=== PATIENT | female | born 1970 | race Caucasian/White ===

== ENCOUNTER 2017-01-05 12:10 | Inpatient (IN) | payer OTHER ==
[~2017-01-05] VITALS: Ht 162.6 cm; Wt 65.3 kg
[2017-01-05] MEDS ORDERED: LANS30CA56 PO (13:09)
[2017-01-05] MEDS ORDERED: TOPI50TA21 PO (13:09)
[2017-01-05] MEDS ORDERED: ASPI-612 PO (13:09)
[2017-01-05] MEDS ORDERED: ALPR0.5T8 PO (13:09)
[2017-01-05] MEDS ORDERED: DILT120C51 PO (13:09)
[2017-01-05] MEDS ORDERED: ZOLP10TA6 PO (13:09)
[2017-01-05] MEDS ORDERED: CYCL5TAB PO (13:09)
[2017-01-05] MEDS ORDERED: MAG HYDROX/AL HYDROX/SIMETH 30 ML LIQUID UDC PO PRN (13:45)
[2017-01-05] MEDS ORDERED: MAGNESIUM HYDROXIDE 30 ML LIQUID UDC PO PRN (13:45)
[2017-01-05] MEDS ORDERED: LORAZEPAM 2 MG/1 ML VIAL IM PRN (13:45)
[2017-01-05] MEDS ORDERED: ONDANSETRON ODT 4 MG TAB.RAPDIS SL PRN (13:45)
[2017-01-05] MEDS ORDERED: LORAZEPAM 1 MG TABLET PO PRN ×2 (13:45)
[2017-01-05] MEDS ORDERED: DICYCLOMINE HCL 20 MG TABLET PO PRN (13:45)
[2017-01-05] MEDS ORDERED: ACETAMINOPHEN 325 MG TABLET PO PRN (13:45)
[2017-01-05] MEDS ORDERED: CLONIDINE HCL 0.1 MG TABLET PO PRN (13:45)
[2017-01-05] MEDS ORDERED: LOPERAMIDE HCL 2 MG CAPSULE PO PRN ×2 (13:45)
[2017-01-05] MEDS ORDERED: MIRALAX 17 GM POWD.PACK PO PRN (13:45)
[2017-01-05] MEDS ORDERED: ONDANSETRON 4 MG/2 ML VIAL IM PRN (13:45)
--- NOTE | 2017-01-05 15:06 | NUR ---
Admission Note VS: BP: 125/89 HR:81, SpO2: 98% room air, RR: 18, Temp: 98.6 Pain: 2/10 Headache Height: 5'4" Weight: 144 LB Allergies: SHAD Pt is a 46 y/o female admitted to [facility] on 01/05/17 at 1320. Pt is under the care of Dr. Wheat for alcohol dependence. Pt denies suicidal and homicidal ideations at this time. Pt denies being hospitalized in the past 30 days. Pt denies Chest Pain and SOB. Pt brought Ambien 10mg, Alprazolam 0.5mg, Cyclobenzaprine HCL 10mg, Aspirin 325mg, Cartia 120, Topiramate, lansoprazole. Upon assessment pt's skin is intact. CIWA 6 upon admission. NKA, A/Ox4 and able to answer questions necessary for the admission process. Pt is Full Code. VS WNL, Regular Diet. Pt denies having any seizures in the past . Pt reports her PCP is Dr. Donaldson. Breathing is even and unlabored, SpO2 is 98% on RA. Pt ambulates with a steady gait, pt reports feeling very tired and hungry. Pt reports regular bowel movement, LBM on 01/04/17. Pt denies being a smoker. Hx of a Gastric bypass, nasal surgery and a . Dr. Wheat has been notified, pt has been placed under observation at this time until UDS has been completed. Pt expected to start a 5 day Ativan taper starting at 1500 on 01/05/17. All needs have been met. Pt has been oriented to the room and the unit. All safety measures in place per hospital policy. Bed in lowest position, side rails up x2 and padded, call-light within reach. Will continue to monitor. Substance Abuse: Alcohol: 1.5 pints daily for 2 months. Last use: 1.5 pint on 01/04/17 in the evening. Prescription Medications as prescribed: Xanax: 1mg nightly for 7 years Ambien 10mg nightly for 4 years.
[2017-01-05 15:10] LABS: *URINE HCG, QUAL NEGATIVE (NEGATIVE)
[2017-01-05 15:19] LABS: BASOPHILS # (AUTO) 0.1 K/uL (0.0-8.0); BASOPHILS % (AUTO) 1.2 % (0.0-2.0); HEMATOCRIT 36.3 % (31.2-41.9); HEMOGLOBIN 11.8 g/dL (10.9-14.3); LYMPHOCYTES # (AUTO) 1.3 K/uL (20.0-40.0); LYMPHOCYTES % (AUTO) 26.5 % (20.5-51.5); MEAN CORPUSCULAR HEMOGLOBIN 27.1 uug (24.7-32.8); MEAN CORPUSCULAR HGB CONC 32 g/dL (32.3-35.6); MEAN CORPUSCULAR VOLUME 83.6 fL (75.5-95.3); MONOCYTES # (AUTO) 0.3 K/uL (2.0-10.0); MONOCYTES % (AUTO) 6.9 % (0.0-11.0); NEUTROPHILS # (AUTO) 3.1 K/uL (1.8-8.9); NEUTROPHILS % (AUTO) 64.4 % (38.5-71.5); PLATELET COUNT (AUTO) 298 K/uL (179-408); RED BLOOD CELL COUNT(AUTO) 4.35 MIL/uL (3.63-4.92); RED CELL DISTRIBUTION WIDTH 17.3 % (12.3-17.7); WHITE BLOOD COUNT (AUTO) 4.8 K/uL (3.8-11.8)
[2017-01-05] MEDS: LORAZEPAM 1 MG TABLET PO SCH ×2 (15:37→21:30)
[2017-01-05 15:38] LABS: ALANINE AMINOTRANSFERASE 58 U/L (14-59); ALBUMIN 3.6 g/dL (3.4-5.0); ALKALINE PHOSPHATASE 103 U/L (50-136); AMYLASE 70 U/L (25-115); ASPARTATE AMINOTRANSFERASE 99 U/L (15-37); BILIRUBIN,TOTAL 1.7 mg/dL (0.2-1.0); CALCIUM 8.8 mg/dL (8.5-10.1); CARBON DIOXIDE 28 mmol/L (21-32); CHLORIDE 98 mmol/L (98-107); CREATININE 1.1 mg/dL (0.6-1.3); GFR 54 mL/min (>60); GLUCOSE 102 mg/dL (74-106); LIPASE 335 U/L (73-393); MAGNESIUM 1.7 mg/dL (1.8-2.4); POTASSIUM 3.1 mmol/L (3.5-5.1); SODIUM SERUM 136 mmol/L (136-145); TOTAL PROTEIN, SERUM 7.4 g/dL (6.4-8.2); UREA NITROGEN, BLOOD 11 mg/dL (7-18)
[2017-01-05] MEDS ORDERED: THIAMINE HCL 200 MG/2 ML VIAL IM ONE (16:00)
[2017-01-05 16:05] LABS: ETHANOL < 3 MG/DL (0-0)
[2017-01-05 16:10] LABS: THYROID STIMULATING HORMONE 1.836 mIU/mL (0.358-3.740)
[2017-01-05 16:38] LABS: HIV-1 p24 ANTIGEN NON REACTIVE (NONREACTIVE); HIV-1/2 ANTIBODY NON REACTIVE (NONREACTIVE)
[2017-01-05 16:47] LABS: *AMPHETAMINE, URINE NEGATIVE (NEGATIVE); *BARBITURATE, URINE NEGATIVE (NEGATIVE); *CANNABINOID, URINE NEGATIVE (NEGATIVE); *COCCAINE, URINE NEGATIVE (NEGATIVE); *OPIATE, URINE NEGATIVE (NEGATIVE); *PHENCYCLIDINE SCREEN,URINE NEGATIVE (NEGATIVE)
[2017-01-05] MEDS ORDERED: MAGNESIUM OXIDE 400 MG TABLET PO ONE (17:00)
[2017-01-05] MEDS ORDERED: POTASSIUM CHLORIDE 20 MEQ TAB.PRT.SR PO ONE (17:00)
--- NOTE | 2017-01-05 19:27 | NUR ---
end of shift Endorsed pt to nightshift nurse. 4. Pt is a 46 y/o female admitted to [facility] on 01/05/17 at 1320. Pt is under the care of Dr. Wheat for alcohol dependence. Pt denies suicidal and homicidal ideations at this time. Pt denies being hospitalized in the past 30 days. Pt has been placed on a 5 day Ativan taper, Pt is tolerating taper and mildly withdrawing at this time AEB CIWA Pt denies Chest Pain and SOB. intake: 1500ml, Void x2, BM x0. Pt brought Ambien 10mg, Alprazolam 0.5mg, Cyclobenzaprine HCL 10mg, Aspirin 325mg, Cartia 120, Topiramate, lansoprazole. Upon assessment pt's skin is intact. CIWA 6 upon admission. NKA, A/Ox4 and able to answer questions necessary for the admission process. Pt is Full Code. VS WNL, Regular Diet. Pt denies having any seizures in the past . Pt reports her PCP is Dr. Donaldson. Breathing is even and unlabored, SpO2 is 98% on RA. Pt ambulates with a steady gait, pt reports feeling very tired and hungry. Pt reports regular bowel movement, LBM on 01/04/17. Pt denies being a smoker. Hx of a Gastric bypass, nasal surgery and a . Dr. Wheat has been notified, pt has been placed under observation at this time until UDS has been completed. Pt expected to start a 5 day Ativan taper starting at 1500 on 01/05/17. All needs have been met. Pt has been oriented to the room and the unit. All safety measures in place per hospital policy. Bed in lowest position, side rails up x2 and padded, call-light within reach. Will continue to monitor.
--- NOTE | 2017-01-05 19:28 | NUR ---
Start of shift note Received report from day shift nurse. Pt is a 46 yo female, A+Ox4, presenting to [facility] for ETOH dependence. Pt has NKA, Full Code status, and on Regular diet. Pt is on fall and Seizure precautions. Pt has HX of depression and Broken heart syndrome. Pt is on 5 day Ativan taper, tolerated well. No s/s of distress noted at this time. Respirations even and unlabored. Will continue to monitor.
[2017-01-05 20:24] VITALS: BP 108/73
[2017-01-05] MEDS: DILTIAZEM HCL SR 60 MG CAP.SR.12H PO SCH (21:29)
[2017-01-05] MEDS: TOPIRAMATE 25 MG TABLET PO SCH (21:30)
[2017-01-06 00:40] VITALS: BP 107/76
[2017-01-06 04:15] VITALS: BP 111/81
--- NOTE | 2017-01-06 04:17 | NUR ---
PRN Tylenol Pt c/o general body pain 02/27 and requested for PRN Tylenol. Medication given and tolerated well. Will reassess within 1 HR. Will continue to monitor.
--- NOTE | 2017-01-06 05:15 | NUR ---
PRN Tylenol Reassessment Medication effective. Pt pain level reduced to 3/10. No s/s of ASE/distress noted at this time. Respirations even and unlabored. Will continue to monitor.
[2017-01-06] MEDS: PANTOPRAZOLE SODIUM 40 MG TABLET.DR PO SCH (06:40)
--- NOTE | 2017-01-06 07:07 | NUR ---
End of shift note Pt is a 46 yo female, A+Ox4, presenting to [facility] for ETOH dependence. Pt has NKA, Full Code status, and on Regular diet. Pt is on fall and Seizure precautions. Pt has HX of depression and Broken heart syndrome. Pt is on 5 day Ativan taper, tolerated well. Pt was given PRN Tylenol @0417. Pt slept for a total of 7 HRS. Last CIWA: 5 @0400. No s/s of distress noted at this time. Respirations even and unlabored. Will endorse to day shift nurse.
[2017-01-06 08:00] VITALS: BP 104/73
[2017-01-06 08:04] LABS: BASOPHILS % (AUTO) 1.6 % (0.0-2.0); EOSINOPHILS % (AUTO) 1.6 % (0.0-7.0); HEMATOCRIT 35.4 % (31.2-41.9); HEMOGLOBIN 11.5 g/dL (10.9-14.3); LYMPHOCYTES # (AUTO) 0.9 K/uL (20.0-40.0); LYMPHOCYTES % (AUTO) 28.2 % (20.5-51.5); MEAN CORPUSCULAR HEMOGLOBIN 27.6 uug (24.7-32.8); MEAN CORPUSCULAR HGB CONC 32 g/dL (32.3-35.6); MONOCYTES # (AUTO) 0.3 K/uL (2.0-10.0); NEUTROPHILS # (AUTO) 1.8 K/uL (1.8-8.9); NEUTROPHILS % (AUTO) 57.6 % (38.5-71.5); RED BLOOD CELL COUNT(AUTO) 4.16 MIL/uL (3.63-4.92); RED CELL DISTRIBUTION WIDTH 17.3 % (12.3-17.7)
--- NOTE | 2017-01-06 08:04 | NUR ---
Start of shift note; Patient is AOX4. Patient is a 46 y/o female admitted on 01/05/17 for ETOH dependence. Patient reported history of depression. Patient was placed on 5 day Ativan taper. Patient's last CIWA is 5 at 0400. Patient is on regular diet, full code, NKA. Educated patient regarding treatment plan and medication regime, verbalized understanding. patient is on fall and seizure precaution. All safety measures secured. Met all needs. Addendum: 01/06/17 at 0812 by TAMMY JONES LVN Patient's UDS came back positive for Benzo, patient also reported taking Xanax as her home medication.
[2017-01-06 08:13] LABS: PLATELET COUNT (AUTO) 254 K/uL (179-408)
[2017-01-06 08:14] LABS: ALBUMIN 3.2 g/dL (3.4-5.0); BILIRUBIN,DIRECT 0.2 mg/dL (0.0-0.2); BILIRUBIN,TOTAL 1.2 mg/dL (0.2-1.0); CALCIUM 8.7 mg/dL (8.5-10.1); CREATININE 0.9 mg/dL (0.6-1.3); MAGNESIUM 1.9 mg/dL (1.8-2.4); PHOSPHOROUS 2.8 mg/dL (2.5-4.9); POTASSIUM 3.7 mmol/L (3.5-5.1); TOTAL PROTEIN, SERUM 6.6 g/dL (6.4-8.2)
[2017-01-06 08:17] LABS: HCV AB <0.1 s/co ratio (0.0-0.9); HEPATITIS B CORE AB, IgM Negative (Negative); HEPATITIS B SURFACE AG Negative (Negative)
[2017-01-06] MEDS: THIAMINE HCL 100 MG TABLET PO SCH (08:57)
[2017-01-06] MEDS: FOLIC ACID 1 MG TABLET PO SCH (08:58)
[2017-01-06] MEDS: ASPIRIN 325 MG TABLET PO SCH (08:58)
[2017-01-06] MEDS: MULTIVITAMINS,THERAPEUTIC TABLET PO SCH (08:58)
[2017-01-06] MEDS: TOPIRAMATE 25 MG TABLET PO SCH ×2 (08:58→20:11)
[2017-01-06] MEDS: LORAZEPAM 1 MG TABLET PO SCH ×3 (08:58→20:11)
[2017-01-06] MEDS: DILTIAZEM HCL SR 60 MG CAP.SR.12H PO SCH ×2 (08:59→20:12)
[2017-01-06] MEDS ORDERED: TUBERCULIN,PURIF.PROT.DERIV. 5 TU/0.1 ML TEST ID ONE (09:00)
[2017-01-06 12:00] VITALS: BP 104/79
[2017-01-06 16:00] VITALS: BP 112/83
[2017-01-06] MEDS: HYDROXYZINE PAMOATE 25 MG CAPSULE PO PRN (16:39)
--- NOTE | 2017-01-06 16:39 | NUR ---
PRN medication; Patient noted to be anxious, m/b facial grimacing , pacing back and forth in the room with HR of 104. PRN Vistaril 25mg PO given for agitation/anxiety. Will continue to monitor for effectiveness of medication.
--- NOTE | 2017-01-06 17:39 | NUR ---
Re-assessment; PRN medication is effective. Patient appears calm and comfortable at this time, no anxiety noted.
--- NOTE | 2017-01-06 18:24 | NUR ---
End of shift note; Patient is AOX4. Patient is a 46 y/o female admitted on 01/05/17 for ETOH dependence. Patient reported history of depression. Patient was placed on 5 day Ativan taper. Patient is on regular diet, full code, NKA. Educated patient regarding treatment plan and medication regime, verbalized understanding. Patient remained complaint with treatment plan and medication regime. Medications were effective in reducing withdrawal symptoms. Patient is on fall and seizure precaution. All safety measures secured. Met all needs.
[2017-01-06 20:00] VITALS: BP 110/81
--- NOTE | 2017-01-06 20:00 | NUR ---
Start of Shift Pt is a 46 year old female admitted for ETOH dependence, placed on 5 day Ativan taper. Pt reported consuming 1.5 pints of vodka for 2 months. PMH: Depression. NKA, regular diet, fall/seizure precautions and full code. Upon assessment, pt presents with anxiety, hot/cold flushing throughout body, tremors felt upon touch, skin noted with sweat/clammy upon touch, respirations unlabored, denies SOB/chest pain, denies n/v/d, denies SI/HI, bowel sounds active x4, abdomen soft. Safety measures in place, call light within reach, side rails up x2, bed locked and in low position. Will continue to monitor.
[2017-01-07] VITALS: BP 105/79
[2017-01-07] MEDS: diphenhydrAMINE 50 MG CAPSULE PO PRN ×2 (00:55→21:27)
--- NOTE | 2017-01-07 00:55 | NUR ---
PRN Administration Pt requested aid to help her sleep. Benadryl 50mg PRN administered. Safety measures in place. Will continue to monitor.
--- NOTE | 2017-01-07 01:55 | NUR ---
PRN Reassessment Upon reassessment, pt is resting with eyes close, respirations unlabored. Safety measures in place. Will continue to monitor.
--- NOTE | 2017-01-07 04:00 | NUR ---
Pt refused to be woke for 0400 Vitals. CIWA assessment deferred d/t pt sleeping - to assess while pt is awake as ordered. Pt is in bed resting, eyes closed, no s/s of acute distress noted, respirations unlabored. Safety measures in place. Will continue to monitor.
--- NOTE | 2017-01-07 07:00 | NUR ---
End of Shift Pt is a 46 year old female admitted for ETOH dependence, placed on 5 day Ativan taper. Pt reported consuming 1.5 pints of vodka for 2 months. PMH: Depression. NKA, regular diet, fall/seizure precautions and full code. During shift pt presented with anxiety, hot/cold flushing throughout body, tremors felt upon touch, skin clammy/sweaty - scheduled taper medications administered, CIWA 9 decreased to CIWA 8. Benadryl 50mg PRN administered for sleep, effective. Pt slept for 9 hours, intake of 700 ml PO and voids x1. Safety measures in place, call light within reach, side rails up x2, bed locked and in low position. Endorsed to day shift nurse.
[2017-01-07] MEDS: PANTOPRAZOLE SODIUM 40 MG TABLET.DR PO SCH (07:04)
--- NOTE | 2017-01-07 07:40 | NUR ---
BEGINNING OF SHIFT Patient endorsement report received from retail shift supervisor nurse, all pertinent information discussed. patient is a 46 year old Female with NKA, and full code, with admitting Dx: ETOH dependence. Patient currently on a 5 day Ativan taper as ordered and is scheduled to begin day 2 of taper. Per retail shift supervisor report patient received prns: Benadryl as ordered, medication effective one hour post administration, patient sleep for 9 hours. Patient with last ciwa score of: 8. Patient received awake, alert and oriented x4, vital signs stable. patient educated regarding plan of care for the day and medication regimen, safety measures in place. will continue to monitor.
[2017-01-07 08:13] VITALS: BP 112/81
[2017-01-07] MEDS: THIAMINE HCL 100 MG TABLET PO SCH (08:45)
[2017-01-07] MEDS: TOPIRAMATE 25 MG TABLET PO SCH ×2 (08:45→21:16)
[2017-01-07] MEDS: FOLIC ACID 1 MG TABLET PO SCH (08:45)
[2017-01-07] MEDS: DILTIAZEM HCL SR 60 MG CAP.SR.12H PO SCH ×2 (08:45→21:20)
[2017-01-07] MEDS: ASPIRIN 325 MG TABLET PO SCH (08:45)
[2017-01-07] MEDS: LORAZEPAM 1 MG TABLET PO SCH ×4 (08:45→21:16)
[2017-01-07] MEDS: MULTIVITAMINS,THERAPEUTIC TABLET PO SCH (08:45)
[2017-01-07 12:20] VITALS: BP 110/75
[2017-01-07] MEDS: HYDROXYZINE PAMOATE 25 MG CAPSULE PO PRN (16:53)
[2017-01-07] MEDS: IBUPROFEN 600 MG TABLET PO PRN (16:53)
--- NOTE | 2017-01-07 16:53 | NUR ---
PRN VISTARIL/MOTRIN Patient c/o head ache 5/10 and c/o increase in anxiety, provided with non pharmacological interventions with no relief, administered Vistaril 25mg Po as ordered and Motrin as ordered, will monitor effectiveness of medication.
[2017-01-07 17:42] VITALS: BP 111/79
--- NOTE | 2017-01-07 17:53 | NUR ---
MOTRIN/VISTARIL REASSESSMENT Patient reports medication effective pain 0/10, reports anxiety decreased and feels much better, will continue to monitor closely.
--- NOTE | 2017-01-07 18:46 | NUR ---
END OF SHIFT Patient alert and oriented x4, vital signs were stable during shift. Patient compliant with therapeutic plan of care. Patient with admitting Dx: ETOH dependence. Patient placed an Ativan taper and is currently on day 2 of taper, Well tolerated, no ASE noted. Patient encouraged adequate PO fluid intake as tolerated. 0900 assessment patient presented with: fine tremors, anxiety and very mild headache with ciwa score of: 7; 1300 assessment patient presented with: fine tremors and anxiety with ciwa score of: 6; 1700 assessment patient presented with: fine tremors, and anxiety with ciwa score of: 6. . Administered PRN: Vistaril as ordered and Motrin as ordered, medications were effective one hour post administration. Abdomen is soft and non distended, bowel sounds heard in all quadrants. Patient encouraged to attend group therapies/sessions to learn new coping skills to prevent relapse, noted attending and participating, denies SI/HI, noted self motivated towards sobriety. Patients safety measures as in place. All needs met and rendered, will continue to monitor closely. Patient endorsed to night coordinator nurse all pertinent information discussed.
[2017-01-07 20:00] VITALS: BP 113/84
--- NOTE | 2017-01-07 20:00 | NUR ---
Start of Shift Pt is a 46 year old female admitted for ETOH dependence, placed on 5 day Ativan taper. Pt reported consuming 1.5 pints of vodka for 2 months. PMH: Depression. NKA, regular diet, fall/seizure precautions and full code. Upon assessment, pt presents with anxiety, tremors noted, skin noted with moderate sweat/clammy upon touch, respirations unlabored, denies SOB/chest pain, denies n/v/d, denies SI/HI, bowel sounds active x4, abdomen soft. Safety measures in place, call light within reach, side rails up x2, bed locked and in low position. Will continue to monitor.
--- NOTE | 2017-01-07 21:27 | NUR ---
PRN Administration Pt requested aid to help her sleep. Non-pharmacological methods ineffective. Benadryl 50mg PRN administered. Safety measures in place. Will continue to monitor.
--- NOTE | 2017-01-07 22:30 | NUR ---
PRN Reassessment Upon reassessment, pt is in bed, eyes closed, respirations unlabored, no s/s of acute distress noted. Safety measures in place. Will continue to monitor.
[2017-01-08] VITALS (8 sets, daily range): BP systolic 109–118; BP diastolic 68–84
--- NOTE | 2017-01-08 | NUR ---
Vital Signs BP 113/82, Pulse 91, repirations 14, Spo2 97%, temp 97.7, no reports of pain CIWA deferred d/t pt sleeping - to assess while pt is awake as ordered. safety measures in place. Will continue to monitor.
--- NOTE | 2017-01-08 04:00 | NUR ---
Vital Signs BP 105/69, Pulse 98, respirations 14, Spo2 98%, temp 97.7, no reports of pain CIWA deferred d/t pt sleeping - to assess while pt is awake as ordered. safety measures in place. Will continue to monitor.
[2017-01-08] MEDS: PANTOPRAZOLE SODIUM 40 MG TABLET.DR PO SCH (06:58)
--- NOTE | 2017-01-08 07:00 | NUR ---
End of Shift Pt is a 46 year old female admitted for ETOH dependence, placed on 5 day Ativan taper. Pt reported consuming 1.5 pints of vodka for 2 months. PMH: Depression. NKA, regular diet, fall/seizure precautions and full code. During shift, pt presented with anxiety, tremors - scheduled taper medications administered, effective in management of s/s of withdrawal as reported by pt, ADOLFO 6. Benadryl 50mg PRN administered for sleep, effective. Pt slept for 7 hours, intake of 750 ml PO and voids x0. Safety measures in place, call light within reach, side rails up x2, bed locked and in low position. Endorsed to day shift nurse.
[2017-01-08 07:55] LABS: EOSINOPHILS # (AUTO) 0.1 K/uL (0.0-0.7); EOSINOPHILS % (AUTO) 2.7 % (0.0-7.0); HEMATOCRIT 35.1 % (31.2-41.9); HEMOGLOBIN 11.3 g/dL (10.9-14.3); LYMPHOCYTES # (AUTO) 1.3 K/uL (20.0-40.0); LYMPHOCYTES % (AUTO) 34.1 % (20.5-51.5); MEAN CORPUSCULAR HEMOGLOBIN 27.7 uug (24.7-32.8); MEAN CORPUSCULAR HGB CONC 32 g/dL (32.3-35.6); MONOCYTES # (AUTO) 0.4 K/uL (2.0-10.0); MONOCYTES % (AUTO) 9.5 % (0.0-11.0); NEUTROPHILS # (AUTO) 2.1 K/uL (1.8-8.9); NEUTROPHILS % (AUTO) 52.7 % (38.5-71.5); PLATELET COUNT (AUTO) 241 K/uL (179-408); RED BLOOD CELL COUNT(AUTO) 4.08 MIL/uL (3.63-4.92); RED CELL DISTRIBUTION WIDTH 17.7 % (12.3-17.7); WHITE BLOOD COUNT (AUTO) 3.9 K/uL (3.8-11.8)
--- NOTE | 2017-01-08 08:17 | NUR ---
BEGINNING OF SHIFT Patient endorsement report received from seating upholsterer nurse, all pertinent information discussed. patient is a 46 year old Female with NKA, and full code, with admitting Dx: ETOH dependence. Patient currently on a 5 day Ativan taper as ordered and is scheduled to begin day 3 of taper. Per seating upholsterer report patient received prns: Benadryl as ordered, medication effective one hour post administration, patient sleep for 9 hours. Patient with last ciwa score of: 7. Patient received awake, alert and oriented x4, vital signs stable. patient educated regarding plan of care for the day and medication regimen, safety measures in place. will continue to monitor.
[2017-01-08 08:18] LABS: ALBUMIN 3.1 g/dL (3.4-5.0); BILIRUBIN,DIRECT 0.1 mg/dL (0.0-0.2); BILIRUBIN,TOTAL 0.5 mg/dL (0.2-1.0); CALCIUM 8.7 mg/dL (8.5-10.1); CREATININE 0.8 mg/dL (0.6-1.3); MAGNESIUM 2.2 mg/dL (1.8-2.4); PHOSPHOROUS 4.4 mg/dL (2.5-4.9); POTASSIUM 4.1 mmol/L (3.5-5.1); TOTAL PROTEIN, SERUM 6.6 g/dL (6.4-8.2)
[2017-01-08] MEDS: ASPIRIN 325 MG TABLET PO SCH (09:02)
[2017-01-08] MEDS: DILTIAZEM HCL SR 60 MG CAP.SR.12H PO SCH ×2 (09:02→20:01)
[2017-01-08] MEDS: FOLIC ACID 1 MG TABLET PO SCH (09:03)
[2017-01-08] MEDS: TOPIRAMATE 25 MG TABLET PO SCH ×2 (09:03→20:00)
[2017-01-08] MEDS: LORAZEPAM 1 MG TABLET PO SCH ×3 (09:03→20:00)
[2017-01-08] MEDS: MULTIVITAMINS,THERAPEUTIC TABLET PO SCH (09:03)
[2017-01-08] MEDS: THIAMINE HCL 100 MG TABLET PO SCH (09:03)
[2017-01-08] MEDS: HYDROXYZINE PAMOATE 25 MG CAPSULE PO PRN (09:47)
--- NOTE | 2017-01-08 09:47 | NUR ---
PRN VISTARIL Patient noted with increase in anxiety, and elevated heart rate of 113 provided with non pharmacological interventions with no relief, administered Vistaril 25mg Po as ordered, will monitor effectiveness of medication. Dr. Wheat was notified.
--- NOTE | 2017-01-08 10:47 | NUR ---
VISTARIL REASSESSMENT Medication not effective patient continues to c/o increase in anxiety, also noted with fine tremors and barely sweating. Dr. Wheat aware Per MD he will input orders for a one time dose of Ativan, will administer medication as ordered and will continue to monitor. patient encouraged adequate PO fluid intake. Patient was also provided with calming reassurance and deep breathing techniques, will continue to monitor.
[2017-01-08] MEDS ORDERED: LORAZEPAM 1 MG TABLET PO ONE (11:15)
[2017-01-08] MEDS ORDERED: GABAPENTIN 300 MG CAPSULE PO ONE (11:15)
[2017-01-08] MEDS: GABAPENTIN 300 MG CAPSULE PO SCH ×2 (14:22→20:00)
[2017-01-08] MEDS ORDERED: DILTIAZEM HCL SR 60 MG CAP.SR.12H PO ONE (15:00)
--- NOTE | 2017-01-08 18:56 | NUR ---
START OF SHIFT NOTE Patient endorsed by day shift nurse. SBAR report given. Patient is a 46 years old female admitted to [facility] on 01/05/17 for Alcohol Withdrawal, placed on 5 day Ativan, and remains compliant with treatment plan, medication and diet regime. NKA, Regular Diet, Full Code , Seizures and Fall Precautions. Patient denied History of Seizures. Patient Alert and Oriented x4. CIWA 6: Patient presents with "increased" anxiety, agitated, tremors that can felt., sweating . Patient denied N/V, and diarrhea. Patient denied SI/HI. VS: T: 98.4; HR: 115; RR: 19; O2 SAT in RA:98%. Pain level in "the middle of the chest tightness: 3/10". Patient denied SOB. Face is symmetrical. Speech is clear and soft. PERRLA: pupils bilaterally:+3. Patient's glasses. Mouth: Lips and tongue are pink. No dentures Breathing Sounds is unlabored and even. Lung Sounds are clear bilaterally. BS are active in all x4 quadrants. Last BM's "at 10:00 ". Skin is intact, warm and moist by touch. Patient educated for adequate hydration. Patient returned her knowledge back by verbalizing understanding. Safety measures in the place by hospital policy: Call light within reach, rails up x2; bed in low position and locked. All needs are met by hospital policy. Will continue to monitor closely.
--- NOTE | 2017-01-08 18:56 | NUR ---
END OF SHIFT Patient alert and oriented x4, vital signs were stable during shift. Patient compliant with therapeutic plan of care. Patient with admitting Dx: ETOH dependence. Patient placed an Ativan taper and is currently on day 5 of taper, Well tolerated, no ASE noted. Patient encouraged adequate PO fluid intake as tolerated 0900 assessment patient presented with: fine tremors, barely sweating, and anxiety with ciwa score of: 6; 1300 assessment patient presented with: tremors, barely sweating, and anxiety with ciwa score of: 8. 1700 assessment patient presented with: fine tremors, barely sweating and anxiety with ciwa score of: 6. Administered PRN Vistaril 25mg Po as ordered at 0947, also administered one time dose of Ativan 2mg Po and gabapentin as ordered at 1114, medications were effective. Patient continues with elevated heart rate ranging from: 90-115. MD is aware, increased Cardizem. Patient provided with calming reassurance and encouraged to participate in activities, patient attended yoga, after yoga verbalized feeling much better. Abdomen is soft and non distended, bowel sounds heard in all quadrants. Patient encouraged to attend group therapies/sessions to learn new coping skills to prevent relapse, noted attending and participating, denies SI/HI, noted self motivated towards sobriety. Patients safety measures are in place. All needs met and rendered, will continue to monitor closely. Patient endorsed to overnight stocker nurse all pertinent information discussed.
[2017-01-08] MEDS: diphenhydrAMINE 50 MG CAPSULE PO PRN (20:26)
--- NOTE | 2017-01-08 20:26 | NUR ---
PRN BENADRYL PO ADMINISTRATION Patient c/o insomnia. Patient was assessed. PRN Benadryl PO was discussed. Patient 's educated for actions, adverse reactions and side effects of Benadryl. Patient returned back his knowledge by verbalizing understanding. PRN Benadryl PO was administrated as ordered with full glass of water. Patient tolerated well. Will reassessing in one hour. Safety measures on the place by hospital policy: Call light within reach; Bed is low position, and locked; side rails up x2. Will continue to monitor closely.
--- NOTE | 2017-01-08 21:26 | NUR ---
PRN BENADRYL PO REASSESSMENT Patient is sleeping . Breathing is unlabored and even RR: 15. PRN Benadryl PO was effective. Safety measures on the place by hospital policy: Call light within reach; Bed is low position, and locked; side rails up x2. All needs are met by hospital policy. Will continue to monitor closely.
[2017-01-09] VITALS: BP 102/72
[2017-01-09 04:00] VITALS: BP 99/70
[2017-01-09] MEDS: IBUPROFEN 600 MG TABLET PO PRN ×2 (04:38→18:35)
--- NOTE | 2017-01-09 04:38 | NUR ---
PRN MOTRIN PO ADMINISTRATION Patient c/o headache 01/27, and asked for aid. Patient was assessed. PRN Motrin PO was discussed. Patient 's educated for actions, adverse reactions and side effects of Bentyl. Patient returned back his knowledge by verbalizing understanding. PRN Motrin PO was administrated as ordered with full glass of water. Patient tolerated well. Will reassessing in one hour. Safety measures on the place by hospital policy: Call light within reach; Bed is low position, and locked; side rails up x2. Will continue to monitor closely. Addendum: 01/09/17 at 0527 by KENNETH SOLO RN Patient 's educated for actions, adverse reactions and side effects of Motrin.
--- NOTE | 2017-01-09 05:38 | NUR ---
PRN MOTRIN PO REASSESSMENT Patient stayed, that PRN Motrin PO was effective. Pain level:" 0/10". Safety measures on the place by hospital policy: Call light within reach; Bed is low position, and locked; side rails up x2. All needs are met by hospital policy. Will continue to monitor closely.
[2017-01-09] MEDS: PANTOPRAZOLE SODIUM 40 MG TABLET.DR PO SCH (06:15)
--- NOTE | 2017-01-09 07:12 | NUR ---
END OF SHIFT NOTE Patient is a 46 years old female admitted to [facility] on 01/05/17 for Alcohol Withdrawal, placed on 5 day Ativan, and remains compliant with treatment plan, medication and diet regime. NKA, Regular Diet, Full Code , Seizures and Fall Precautions. Patient denied History of Seizures. Patient denied SI/HI. CIWA decreased from 6 to 3: Patient presents with anxiety, agitation, nervousness,, tremors that can felt., sweating . Patient denied N/V, and diarrhea. Patient denied SI/HI. VS at 04:00: T: 98.4; HR: 99; RR: 12; O2 SAT in RA:97%. Patient denied SOB, and chest pain. Skin is intact, warm and moist by touch. PRN Motrin PO and PRN Benadryl PO were effective. Patient slept 6 hours, Intake: 500 ml. Voided x1. All needs are met by hospital policy. Call Light within reach, Bed is locked and in the lowest position; Bed rails up x2. Patient endorsed to day shift nurse in stable condition. SBAR report given.
--- NOTE | 2017-01-09 07:25 | NUR ---
Start of Shift Report from the night nurse: pt is a 46 y/o female here for Etoh dependence r/t Vodka 1.5 pints daily; 5 day Ativan taper ordered. Pt cecy s full code, NKAS, Regular diet, fall and seizure precautions ordered. HHx: depression, and endorsed to me that pt stated to night nurse that she has a hhx of PR with tachycardia, so notified with orders for EKG with NSR result and no abnorms noted, pt is a new smoker. PRN Motrin given for TINAJERO and Benadryl for sleep. V/S stable. Skin is intact. Mag-OX and Potassium supplements given with no abnorm labs endorsed to me. Pt is awake in room and wants to go smoke. Last CIWA 3. Will cont. to monitor the pt.
[2017-01-09 08:00] VITALS: BP 122/84
[2017-01-09] MEDS: FOLIC ACID 1 MG TABLET PO SCH (08:58)
[2017-01-09] MEDS: MULTIVITAMINS,THERAPEUTIC TABLET PO SCH (08:58)
[2017-01-09] MEDS: THIAMINE HCL 100 MG TABLET PO SCH (08:58)
[2017-01-09] MEDS: ASPIRIN 325 MG TABLET PO SCH (08:59)
[2017-01-09] MEDS: LORAZEPAM 1 MG TABLET PO SCH ×2 (08:59→20:47)
[2017-01-09] MEDS: TOPIRAMATE 25 MG TABLET PO SCH (08:59)
[2017-01-09] MEDS: GABAPENTIN 300 MG CAPSULE PO SCH ×3 (08:59→20:48)
[2017-01-09] MEDS: DILTIAZEM HCL SR 60 MG CAP.SR.12H PO SCH ×2 (09:00→20:50)
[2017-01-09 12:00] VITALS: BP 118/85
[2017-01-09] MEDS ORDERED: LORAZEPAM 1 MG TABLET PO ONE (12:00)
[2017-01-09] MEDS ORDERED: PROPRANOLOL HCL 20 MG TABLET PO ONE (12:00)
--- NOTE | 2017-01-09 12:30 | NUR ---
Late Medication Administration, New Orders-Ativan ONCE Pt is in room with restlessness, agitated, anxious, moderate tremors of arms, with HR 106 at rest, BP is stable, CIWA 10; Notified Dr. Wheat New orders for Ativan 2mg PO ONCE, and Inderal 20mg PO ONCE. New orders for Prozac 20mg PO daily given late since pt in group therapy. Will reassess in 1 H. W
[2017-01-09] MEDS: FLUOXETINE HCL 20 MG CAPSULE PO SCH (12:32)
--- NOTE | 2017-01-09 13:50 | NUR ---
Therapist encouraged client to attend group therapy.
[2017-01-09 16:00] VITALS: BP 111/73
[2017-01-09] MEDS: HYDROXYZINE PAMOATE 25 MG CAPSULE PO PRN (18:37)
--- NOTE | 2017-01-09 18:40 | NUR ---
PRN Medication Administration Pt is in room with anxiety and nervous since she spoke to shoe parts caser re: d/c plan and date and pt requested anti-anxiety medication and that she has a TINAJERO with 4/10 pain; PRN Vistaril 25mg and Ibuprofen 600mg given PRN as ordered. Will endorse to night nurse to reassess pt in 1H. Will cont. to monitor the pt.
--- NOTE | 2017-01-09 19:23 | NUR ---
START OF SHIFT Patient is a 46 years old female admitted to [facility] on 01/05/17 for Alcohol Withdrawal, placed on 5 day Ativan NKA, Regular Diet, Full Code , Seizures and Fall Precautions. Patient denied History of Seizures. Patient Alert and Oriented x4. CIWA 4: Patient presents with anxiety, nervousness, tremors that can felt. Patient denied N/V, and diarrhea. Patient denied SI/HI. VSWNL. Pain level "0/10". Face is symmetrical. Speech is clear and soft. PERRLA: pupils bilaterally:+3. Patient's glasses. Mouth: Lips and tongue are pink. No dentures Breathing Sounds is unlabored and even". Patient denied SOB and chest pain. Lungs Sounds are clear bilaterally by auscultation. BS are active in all x4 quadrants. Skin is intact, warm and dry by touch. Patient educated for fall prevention. Patient returned her knowledge back by verbalizing understanding. Patient remains compliant with treatment plan, medication and diet regime. Patient participated in group activities today. Safety measures in the place by hospital policy: Call light within reach, rails up x2; bed in low position and locked. All needs are met by hospital policy. Patient endorsed by day shift nurse. SBAR report received.
--- NOTE | 2017-01-09 19:23 | NUR ---
End of Shift Report to the night nurse: pt is a 46 y/o female here for Etoh dependence r/t Vodka 1.5 pints daily; 5 day Ativan taper ordered. Pt cecy s full code, NKAS, Regular diet, fall and seizure precautions ordered. HHx: HTN, depression, anxiety, migraines, gastritis r/t Etoh, Insomnia, cardiomyopathy, Cardica Cath, smoker, gastric by pass surgery, , Sinus surgery and relapse. V/S stable. Skin is intact. No new labs during my shift. No hallucinations, delusions or suicidal ideations noted during my shift. New order for modified gabapentin from 300mg to 6000mg, Prozac daily , and ONCE time orders for Ativan 2mg CIWA 10 and Inderal for tachycardia 116 bpm and anxiety since pt was having anxiety episode and it was effective since tremors decreased No PRN Vistaril 25mg for anxiety r/t d/c plannign and Motrin r/t TINAJERO given at 1840 so endorsed to night nurse to reassess the pt. Pt attended group therapy and activities during my shift. Last CIWA 6.
[2017-01-09 20:00] VITALS: BP 107/74
[2017-01-09] MEDS: TOPIRAMATE 100 MG TABLET PO SCH (20:48)
[2017-01-09] MEDS: diphenhydrAMINE 50 MG CAPSULE PO PRN (20:48)
--- NOTE | 2017-01-09 20:48 | NUR ---
PRN BENADRYL PO ADMINISTRATION Patient c/o insomnia and asked sleep aid. Patient was assessed. PRN Benadryl PO was discussed. Patient educated for actions, adverse reactions and side effects of Motrin and Benadryl. Patient return back his knowledge by verbalizing understanding. PRN Benadryl PO 50 mg 1 capsule's administrated as ordered with full glass of water. Patient tolerated well. Will reassessing in one hour. Safety measures on the place by hospital policy: Call light within reach; Bed is low position, and locked; side rails up x2. Will continue to monitor closely.
[2017-01-09] MEDS: PROPRANOLOL HCL 20 MG TABLET PO SCH (20:49)
[2017-01-09] MEDS ORDERED: TOPIRAMATE 25 MG TABLET PO SCH (21:00)
--- NOTE | 2017-01-09 21:48 | NUR ---
RE-ASSESSMENT Patient is sleeping. Breathing is unlabored and even RR:14. PRN Benadryl PO was effective. Safety measures on the place by hospital policy: Call light within reach; Bed is low position, and locked; side rails up x2. All needs are met by hospital policy. Will continue to monitor closely.
[2017-01-10] VITALS: BP 87/60
[2017-01-10] MEDS: HYDROXYZINE PAMOATE 25 MG CAPSULE PO PRN (03:20)
--- NOTE | 2017-01-10 03:20 | NUR ---
PRN VISTARIL PO ADMINISTRATION. Patient c/o increased anxiety. Patient was assessed. VS: HR:100; T:98'0; BP 107/79; RR:17. Pain Level:"0/10". PRN Vistaril PO was discussed. Patient 's educated for actions, adverse reactions and side effects of Bentyl. Patient returned back his knowledge by verbalizing understanding. PRN Vistaril PO administrated as ordered with full glass of water. Patient tolerated well. Will reassessing in one hour. Safety measures on the place by hospital policy: Call light within reach; Bed is low position, and locked; side rails up x2. Will continue to monitor closely.
[2017-01-10 04:00] VITALS: BP 107/79
--- NOTE | 2017-01-10 04:20 | NUR ---
RE-ASSESSMENT Patient is sleeping on his left site. Breathing is unlabored and even RR:12. PRN Vistaril PO was effective. All needs met. Safety measures on the place by hospital policy: Call light within reach; Bed is low position, and locked; side rails up x2. All needs are met. Will continue to monitor closely.
[2017-01-10] MEDS: PANTOPRAZOLE SODIUM 40 MG TABLET.DR PO SCH (06:54)
--- NOTE | 2017-01-10 07:00 | NUR ---
END OF SHIFT NOTE Patient is a 46 years old female admitted to [facility] on 01/05/17 for Alcohol Withdrawal, placed on 5 day Ativan, and remains compliant with treatment plan, medication and diet regime. NKA, Regular Diet, Full Code , Seizures and Fall Precautions. Patient denied History of Seizures. Patient denied SI/HI. CIWA 4: Patient presents with anxiety, agitation, nervousness,, tremors that can felt , sweating . Patient denied N/V, and diarrhea. Patient denied SI/HI. VS at 04:00: T: 98.4; HR: 99; RR: 12; O2 SAT in RA:97%. Patient denied SOB, and chest pain. Skin is intact, warm and moist by touch. PRN Benadryl PO and PRN Vistaril PO were effective. Patient slept 5 hours, Intake 1796 ml. Voided x2. All needs are met by hospital policy. Call Light within reach, Bed is locked and in the lowest position; Bed rails up x2. Patient endorsed to day shift nurse in stable condition. SBAR report given.
--- NOTE | 2017-01-10 07:30 | NUR ---
START OF SHIFT NOTE Received report from night nurse, 46 year old female admitted for ETOH dependence, NKA, regular diet, fall/seizure precautions and full code. Pt cont on 5 day Ativan taper. Pt reported consuming 1.5 pints of vodka for 2 months. Pt reported PMH Depression. Upon assessment, pt presents with anxiety, tremors noted, Skin intact warm and dry to touch. Respirations unlabored, denies SOB/chest pain, denies n/v/d, denies SI/HI. Educate the pt current plan of the day and medications regimen with good verbal understanding. Safety measures in place, call light within reach, Will cont to monitor.
[2017-01-10 08:00] VITALS: BP 121/89
[2017-01-10] MEDS: MULTIVITAMINS,THERAPEUTIC TABLET PO SCH (08:15)
[2017-01-10] MEDS: GABAPENTIN 300 MG CAPSULE PO SCH ×2 (08:15→15:14)
[2017-01-10] MEDS: FLUOXETINE HCL 20 MG CAPSULE PO SCH (08:15)
[2017-01-10] MEDS: THIAMINE HCL 100 MG TABLET PO SCH (08:15)
[2017-01-10] MEDS: FOLIC ACID 1 MG TABLET PO SCH (08:15)
[2017-01-10] MEDS: DILTIAZEM HCL SR 60 MG CAP.SR.12H PO SCH ×2 (08:16→22:07)
[2017-01-10] MEDS: TOPIRAMATE 100 MG TABLET PO SCH ×2 (08:16→22:08)
[2017-01-10] MEDS: PROPRANOLOL HCL 20 MG TABLET PO SCH ×2 (08:17→22:07)
[2017-01-10] MEDS: ASPIRIN 325 MG TABLET PO SCH (08:22)
[2017-01-10] MEDS ORDERED: LORAZEPAM 1 MG TABLET PO SCH (09:00)
--- NOTE | 2017-01-10 09:06 | NUR ---
PRN CLONIDINE Pt c/o of anxiety, restless, non pharmacological intervention ineffective. Pt medicated with PRN Clonidine 0.1mg Po as ordered. Side effect of the medications explained with good verbal understanding. Will cont to monitor and reassess the pt.
--- NOTE | 2017-01-10 10:06 | NUR ---
REASSESSMENT Upon reassessment pt reported medication effective, anxiety decreased, and feeling less anxious.
[2017-01-10] MEDS: QUETIAPINE FUMARATE 25 MG TABLET PO SCH ×3 (10:59→16:30)
--- NOTE | 2017-01-10 10:59 | NUR ---
NEW ORDER Pt was seen by Psychiatrist with new order for Seroquel 25mg TID Po. Administered first dose of Seroquel as ordered. Side effect of the medication explained with good verbal understanding.
[2017-01-10 12:00] VITALS: BP 90/58
[2017-01-10 16:00] VITALS: BP 118/65
[2017-01-10] MEDS: IBUPROFEN 600 MG TABLET PO PRN (16:30)
--- NOTE | 2017-01-10 16:30 | NUR ---
PRN MOTRIN Pt c/o general body pain , non pharmacological intervention ineffective. Pt medicated with PRN Motrin 600mg Po as ordered. Side effect of the medications explained with good verbal understanding. Will cont to monitor and reassess the pt. Addendum: 01/10/17 at 1739 by MATT PEGUERO LVN Pt reported Pain level 4/10
--- NOTE | 2017-01-10 17:30 | NUR ---
REASSESSMENT Pt reported medication effective, pain subside to 1/10.
[2017-01-10 18:39] LABS: *AMPHETAMINE, URINE NEGATIVE (NEGATIVE); *BARBITURATE, URINE NEGATIVE (NEGATIVE); *CANNABINOID, URINE NEGATIVE (NEGATIVE); *COCCAINE, URINE NEGATIVE (NEGATIVE); *OPIATE, URINE NEGATIVE (NEGATIVE); *PHENCYCLIDINE SCREEN,URINE NEGATIVE (NEGATIVE)
[2017-01-10] MEDS ORDERED: ASPIRIN/ACETAMINOPHEN/CAFFEINE TABLET PO PRN (19:00)
--- NOTE | 2017-01-10 19:18 | NUR ---
END OF SHIFT NOTE Gave report to night nurse, 46 year old female admitted for ETOH dependence, NKA, regular diet, fall/seizure precautions and full code. Pt cont on 5 day Ativan taper. Pt reported consuming 1.5 pints of vodka for 2 months. Pt reported PMH Depression. Upon assessment, pt presents with anxiety, tremors noted, Skin intact warm and dry to touch. Vital signs remained stable. Pt received PRN's medications noted to be effective. Pt attended groups and activities. Last CIWA-2. Pt's total intake 2100ml, Voidedx5, no BM. Pt scheduled to discharge in AM, urine drug screen completed and placed in the chart. Safety measures in place, call light within reach. Pt endorsed to night nurse in stable condition.
--- NOTE | 2017-01-10 19:19 | NUR ---
Start of shift note Received report from day shift nurse. Pt is a 46 yo female, A+Ox4, presenting to [facility] for ETOH dependence. Pt has NKA, Full Code status, and on Regular diet. Pt is on fall and Seizure precautions. Pt has HX of depression, HTN, Migraines, Gastritis, Anxiety, Sinus SX, Insomnia, Cardiomyopathy, Gastric bypass, , Cardiac Catheter and Broken heart syndrome. Pt is on 5 day Ativan taper, tolerated well. No s/s of distress noted at this time. Respirations even and unlabored. Will continue to monitor.
[2017-01-10 20:17] VITALS: BP 110/76
[2017-01-10] MEDS ORDERED: GABAPENTIN 300 MG CAPSULE PO SCH (21:00)
[2017-01-10] MEDS: diphenhydrAMINE 50 MG CAPSULE PO PRN (22:14)
--- NOTE | 2017-01-10 22:17 | NUR ---
PRN Benadryl Pt c/o inability to sleep and requested for PRN Benadryl. Medication given and tolerated well. Will reassess within 1 Hr. Will continue to monitor.
[2017-01-10] MEDS ORDERED: GABAPENTIN 300 MG CAPSULE ONE (22:21)
[2017-01-10] MEDS ORDERED: PROP20TA22 PO (22:22)
[2017-01-10] MEDS ORDERED: Gabapentin PO ×2 (22:22)
[2017-01-10] MEDS ORDERED: HYDR-3895 PO (22:22)
[2017-01-10] MEDS ORDERED: DILT60CA3 PO (22:22)
[2017-01-10] MEDS ORDERED: TOPI100T11 PO (22:22)
[2017-01-10] MEDS ORDERED: Fluoxetine Hcl PO (22:22)
[2017-01-10] MEDS ORDERED: DIPH50CA37 PO (22:22)
[2017-01-10] MEDS ORDERED: QUET25TA PO (22:22)
--- NOTE | 2017-01-10 23:15 | NUR ---
PRN Benadryl Reassessment Medication effective. Pt is resting well in bed. No s/s of ASE/distress noted at this time. Respirations even and unlabored. Will continue to monitor.
[2017-01-11 00:34] VITALS: BP 91/62
[2017-01-11 04:15] VITALS: BP 104/56
--- NOTE | 2017-01-11 07:04 | NUR ---
End of shift note Pt is a 46 yo female, A+Ox4, presenting to [facility] for ETOH dependence. Pt has NKA, Full Code status, and on Regular diet. Pt is on fall and Seizure precautions. Pt has HX of depression, HTN, Migraines, Gastritis, Anxiety, Sinus SX, Insomnia, Cardiomyopathy, Gastric bypass, , Cardiac Catheter and Broken heart syndrome. Pt has completed 5 day Ativan taper and is due for discharge today. Pt was given PRN Shikha @[id number]. Pt slept for a total of 7 HRS. Last CIWA: 2 @0400. No s/s of distress noted at this time. Respirations even and unlabored. Will endorse to day shift nurse.
[2017-01-11] MEDS: PANTOPRAZOLE SODIUM 40 MG TABLET.DR PO SCH (07:11)
--- NOTE | 2017-01-11 07:11 | NUR ---
START OF SHIFT NOTE Received report from night nurse, 46 year old female admitted for ETOH dependence, NKA, regular diet, fall/seizure precautions and full code. Pt cont on 5 day Ativan taper. Pt reported consuming 1.5 pints of vodka for 2 months. Pt reported PMH Depression. Upon assessment, Pt is alert awake oriented x4 in stable condition. Skin intact warm and dry to touch. Respirations unlabored, denies SOB/chest pain, denies n/v/d, denies SI/HI. Educate the pt current plan of the day and medications regimen with good verbal understanding. Pt requested to go down for smoke. Will cont to monitor and provide safe and hazard free environment.
[2017-01-11 07:46] LABS: CALCIUM 8.5 mg/dL (8.5-10.1); CREATININE 0.9 mg/dL (0.6-1.3); MAGNESIUM 2.3 mg/dL (1.8-2.4); PHOSPHOROUS 4.9 mg/dL (2.5-4.9); POTASSIUM 4.4 mmol/L (3.5-5.1)
[2017-01-11 08:00] VITALS: BP 112/80
[2017-01-11 08:08] LABS: BASOPHILS % (AUTO) 0.8 % (0.0-2.0); EOSINOPHILS # (AUTO) 0.1 K/uL (0.0-0.7); EOSINOPHILS % (AUTO) 1.6 % (0.0-7.0); LYMPHOCYTES # (AUTO) 0.7 K/uL (20.0-40.0); LYMPHOCYTES % (AUTO) 12.8 % (20.5-51.5); MEAN CORPUSCULAR HEMOGLOBIN 27.7 uug (24.7-32.8); MEAN CORPUSCULAR HGB CONC 32 g/dL (32.3-35.6); MEAN CORPUSCULAR VOLUME 85.6 fL (75.5-95.3); MONOCYTES # (AUTO) 0.4 K/uL (2.0-10.0); MONOCYTES % (AUTO) 7.2 % (0.0-11.0); NEUTROPHILS # (AUTO) 4.2 K/uL (1.8-8.9); NEUTROPHILS % (AUTO) 77.6 % (38.5-71.5); PLATELET COUNT (AUTO) 184 K/uL (179-408); RED BLOOD CELL COUNT(AUTO) 3.61 MIL/uL (3.63-4.92); RED CELL DISTRIBUTION WIDTH 17.7 % (12.3-17.7)
[2017-01-11 08:20] LABS: HEMATOCRIT 30.9 % (31.2-41.9); WHITE BLOOD COUNT (AUTO) 5.4 K/uL (3.8-11.8)
[2017-01-11] MEDS: ASPIRIN 325 MG TABLET PO SCH (08:51)
[2017-01-11] MEDS: MULTIVITAMINS,THERAPEUTIC TABLET PO SCH (08:51)
[2017-01-11] MEDS: TOPIRAMATE 100 MG TABLET PO SCH (08:52)
[2017-01-11] MEDS: FOLIC ACID 1 MG TABLET PO SCH (08:52)
[2017-01-11] MEDS: THIAMINE HCL 100 MG TABLET PO SCH (08:52)
[2017-01-11] MEDS: QUETIAPINE FUMARATE 25 MG TABLET PO SCH ×2 (08:52→12:43)
[2017-01-11] MEDS: PROPRANOLOL HCL 20 MG TABLET PO SCH (08:53)
[2017-01-11] MEDS: DILTIAZEM HCL SR 60 MG CAP.SR.12H PO SCH (08:53)
[2017-01-11] MEDS ORDERED: FLUOXETINE HCL 20 MG CAPSULE PO SCH (09:00)
[2017-01-11] MEDS ORDERED: GABAPENTIN 300 MG CAPSULE PO SCH (09:00)
[2017-01-11 13:14] VITALS: BP 105/78
--- NOTE | 2017-01-11 15:23 | NUR ---
DISCHARGE NOTE Pt was admitted for ETOH dependence. Last CIWA was 1. Vital signs WNL. Pt states that she has no pain, discomfort or s/s of withdrawal at this time. Pt denies any SI/HI. Pt states that she feels ready for discharge, pt verbalized her discharge instructions. Pt's medications, discharge instructions and valuables secured in duffle bag then given to [employer]. All belongings returned to pt. Pt's ID band removed, Pt ambulated off of unit. Pt left via [employer] transportation via the [facility].
[2017-01-13 05:06] LABS: *BENZODIAZEPINES Negative (Cutoff=300)
== END 2017-01-11 15:25 | disposition other institution (70) | DRG 895 ==
LOC: SRC 12:10
PROVIDERS: ADMIT Internal Medicine; ATTEND Internal Medicine
PROC: HZ2ZZZZ Detoxification Services for Substance Abuse Treatment (ICD-10-PCS; principal; 2017-01-05)
PROC: HZ41ZZZ Group Counseling for Substance Abuse Treatment, Behavioral (ICD-10-PCS; 2017-01-06)
PROC: HZ31ZZZ Individual Counseling for Substance Abuse Treatment, Behavioral (ICD-10-PCS; 2017-01-08)
DX: F10.230 Alcohol dependence with withdrawal, uncomplicated (principal); I51.81 Takotsubo syndrome; K29.20 Alcoholic gastritis without bleeding; K70.10 Alcoholic hepatitis without ascites; Y90.9 Presence of alcohol in blood, level not specified; G43.909 Migraine, unspecified, not intractable, without status migrainosus; Z98.84 Bariatric surgery status; Z86.74 Personal history of sudden cardiac arrest; I11.9 Hypertensive heart disease without heart failure; G47.00 Insomnia, unspecified; E83.42 Hypomagnesemia; E87.6 Hypokalemia; D72.819 Decreased white blood cell count, unspecified; F32.9 Major depressive disorder, single episode, unspecified; F41.0 Panic disorder [episodic paroxysmal anxiety]; G25.0 Essential tremor
CPT/HCPCS: 36415; 70030-TC; 80307; 80346; 83690; 83735; 84100; 84443; 84703; 85025; 86580; 86592; 86705; 86803; 87340; 87806; 93005; A4663; G6040-TC; J3411; Q0163